=== PATIENT | male | born 1940 | race Caucasian/White ===

== ENCOUNTER → 2016-08-12 | Outpatient (CLI) | payer OTHER, BC ==
[2016-08-12 09:11] LABS: BASOPHILS # (AUTO) 0.08 10*3/UL; BASOPHILS % (AUTO) 0.9 % (0-1); EOSINOPHILS # (AUTO) 0.32 10*3/UL; EOSINOPHILS % (AUTO) 3.7 % (0-8); HEMATOCRIT 47.8 % (42.0-52.0); HEMOGLOBIN 17.2 g/dL (14.0-18.0); MEAN CORPUSCULAR HEMOGLOBIN 30.3 PG (27-31); MEAN CORPUSCULAR VOLUME 84.3 FL (80-90); MEAN PLATELET VOLUME 8.7 FL (7.4-12.2); MONOCYTES # (AUTO) 0.97 10*3/UL (0.3-0.8); MONOCYTES % (AUTO) 11.1 % (5-15); NEUTROPHILS # (AUTO) 5.11 10*3/UL; NEUTROPHILS % (AUTO) 58.5 % (50-80); RED BLOOD COUNT 5.67 10^6/uL (4.70-6.10)
[2016-08-12 09:13] LABS: PLATELET MORPHOLOGY COMMENT NORMAL MORPHOLOGY (NORM); RBC MORPHOLOGY COMMENT NORMAL MORPHOLOGY (NORM); WBC MORPHOLOGY COMMENT NORMAL MORPHOLOGY (NORM)
[2016-08-12 09:55] LABS: BUN/CREATININE RATIO 18.75 (6-20); CALCIUM 8.9 mg/dL (8.7-10.7); CHOL/HDL RATIO 5.68 RATIO (0-4.0); LDL CHOLESTEROL,CALCULATED 72.2 mg/dL; SERUM ALBUMIN 3.9 g/dL (3.5-4.8)
[2016-08-13 11:16] LABS: PSATOTAL 9.5 ng/mL (<=6.5)
[2016-08-13 13:24] LABS: FREE PSA/PSA RATIO 0.13 ratio (())
== END ==
LOC: LAB 08:39
PROVIDERS: ATTEND Internal Medicine
DX: I10 Essential (primary) hypertension (principal); R97.20 Elevated prostate specific antigen [PSA]
CPT/HCPCS: 36415; 80053; 80061; 84153; 84154; 85025

== ENCOUNTER → 2016-08-18 | Outpatient (CLI) | payer OTHER, BC | LOC: MMPC 11:11 | PROVIDERS: ATTEND Internal Medicine | DX: I10 Essential (primary) hypertension (principal); E78.5 Hyperlipidemia, unspecified; C61 Malignant neoplasm of prostate | CPT/HCPCS: 99213; G0463 ==

== ENCOUNTER → 2016-11-04 | Outpatient (CLI) | payer OTHER, BC | LOC: LAB 12:58 | PROVIDERS: ATTEND Urology | DX: C61 Malignant neoplasm of prostate (principal) | CPT/HCPCS: 36415; 84153 ==

== ENCOUNTER → 2016-11-12 | Outpatient (CLI) | payer OTHER, BC ==
[2016-11-12 08:13] LABS: BUN/CREATININE RATIO 23.75 (6-20); CALCIUM 8.7 mg/dL (8.7-10.7); CHOL/HDL RATIO 4.26 RATIO (0-4.0); LDL CHOLESTEROL,CALCULATED 92.8 mg/dL; SERUM ALBUMIN 4.1 g/dL (3.5-4.8)
== END ==
LOC: LAB 07:51
PROVIDERS: ATTEND Internal Medicine
DX: E78.5 Hyperlipidemia, unspecified (principal); I10 Essential (primary) hypertension
CPT/HCPCS: 36415; 80053; 80061; 82550